=== PATIENT | male | born 1970 | race Caucasian/White ===

== ENCOUNTER 2019-09-03 14:12 | Outpatient (RCR) | payer OTHER, SELFPAY ==
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
--- NOTE | 2019-12-01 12:40 | HP.OT.NRP ---
FUENTES GOLDSMITH was seen in my office for initial evaluation on . The following Plan of Care was established for this patient: This patient was last seen in our office 09/03/19. Pertinent comments regarding their Occupational therapy will appear below: pt seen for FCE only. At this point I will be discontinuing this patient from occupational therapy. I would be happy to see this patient again in the future if found appropriate by the physician. Thank you! Mora Kang, OTR/L, CHT
== END 2019-09-03 19:00 ==
LOC: OT 14:12
DX: M54.12 Radiculopathy, cervical region (principal)
CPT/HCPCS: 97750